=== PATIENT | female | born 1970 | race African-American/Black ===

== ENCOUNTER 2019-05-14 13:43 | Emergency (ER) | payer MEDICAID ==
[~2019-05-14] VITALS: Ht 167.6 cm; Wt 62.0 kg
[2019-05-14] MEDS ORDERED: ONDANSETRON HCL 4MG/2ML INJ IV STA (14:14)
[2019-05-14] MEDS ORDERED: MORPHINE SULFATE 4 MG/ML CPJ (NOT FOR IM USE) IV STA (14:14)
[2019-05-14] MEDS ORDERED: SODIUM CHLORIDE 0.9% 1,000 ML IV ONE (14:14)
[2019-05-14 14:53] LABS: BASOPHILS % 1.4 % (0.0-2.0); EOSINOPHILS % 3.8 % (0.0-5.0); HEMATOCRIT. 46.7 % (36.0-48.0); HEMOGLOBIN. 15.5 g/dL (12.0-16.0); LYMPHOCYTES % 26.1 % (20.0-50.0); MEAN CORPUSCULAR HEMOGLOBIN 29.9 pg (28.0-32.0); MEAN PLATELET VOLUME 7.7 fl (7.4-10.4); MONOCYTES % 9.8 % (2.0-8.0); NEUTROPHILS % 58.9 % (40.0-76.0); PLATELET 241 x1000/uL (130-400); RED BLOOD CELL COUNT 5.18 mill/uL (4.2-5.4); RED CELL DISTRIBUTION WIDTH 15.7 % (11.6-14.6)
[2019-05-14 14:58] LABS: CHLORIDE 110 mEq/L (98-107)
[2019-05-14 14:59] LABS: PARTIAL THROMBOPLASTIN TIME 31.4 sec (23.4-31.0); PROTHROMBIN TIME 10.5 sec (9.6-11.0)
[2019-05-14 15:08] LABS: HCG SCREEN NEGATIVE
[2019-05-14 17:56] LABS: CLARITY URINE CLEAR (CLEAR); COLOR URINE YELLOW (YELLOW); KETONES URINE TRACE (NEGATIVE); LEUKOCYTE ESTERASE URINE NEGATIVE (NEGATIVE); NITRITE URINE NEGATIVE (NEGATIVE); OCCULT BLOOD URINE NEGATIVE (NEGATIVE); PROTEIN URINE NEGATIVE (NEGATIVE); SPECIFIC GRAVITY URINE 1.057 (1.005-1.030); UROBILINOGEN URINE 0.2 E.U./dL (0.2-1.0)
[2019-05-14 18:15] VITALS: BP 158/90
[2019-05-14] MEDS ORDERED: IOHEXOL-300 100 ML BOTTLE ONE (18:16)
== END 2019-05-14 18:30 | disposition home or self-care (01) ==
LOC: ER 14:31
DX: M54.5 Low back pain (principal); M54.2 Cervicalgia; R10.9 Unspecified abdominal pain; J45.909 Unspecified asthma, uncomplicated; V49.88XA Car occupant (driver) (passenger) injured in other specified transport accidents, initial encounter; Y93.89 Activity, other specified; Y92.89 Other specified places as the place of occurrence of the external cause; Y99.8 Other external cause status
CPT/HCPCS: 36415; 70450; 70486; 71260; 72125; 74177; 80053; 81003; 83690; 84703; 85025; 85610; 85730; 96374; 96375; 99284; J2270; J2405; J7030; Q9967

== ENCOUNTER 2021-11-14 12:52 | Inpatient (IN) | payer MEDICAID ==
[~2021-11-14] VITALS: Ht 152.4 cm; Wt 57.7 kg
[2021-11-14] MEDS ORDERED: MORPHINE SULFATE 4 MG/ML CPJ (NOT FOR IM USE) IV STA (14:04)
[2021-11-14] MEDS ORDERED: ONDANSETRON HCL 4MG/2ML INJ IV STA (14:04)
[2021-11-14] MEDS ORDERED: SODIUM CHLORIDE 0.9% 1,000 ML IV ONE (14:15)
[2021-11-14 17:06] LABS: BASOPHILS % 0.9 % (0.0-2.0); EOSINOPHILS % 0.2 % (0.0-5.0); HEMATOCRIT. 51.3 % (36.0-48.0); HEMOGLOBIN. 16.6 g/dL (12.0-16.0); LYMPHOCYTES % 48.9 % (20.0-50.0); MEAN CORPUSCULAR HEMOGLOBIN 29.6 pg (28.0-32.0); MEAN CORPUSCULAR VOLUME 91.4 fL (81.0-99.0); MEAN PLATELET VOLUME 7.9 fl (7.4-10.4); PLATELET 202 x1000/uL (130-400); RED BLOOD CELL COUNT 5.61 mill/uL (4.2-5.4); RED CELL DISTRIBUTION WIDTH 15.2 % (11.6-14.6)
[2021-11-14 17:13] LABS: CLARITY URINE CLEAR (CLEAR); COLOR URINE YELLOW (YELLOW); KETONES URINE NEGATIVE (NEGATIVE); LEUKOCYTE ESTERASE URINE 1+ (NEGATIVE); NITRITE URINE NEGATIVE (NEGATIVE); OCCULT BLOOD URINE NEGATIVE (NEGATIVE); PROTEIN URINE 1+ (NEGATIVE); SPECIFIC GRAVITY URINE 1.016 (1.005-1.030); UROBILINOGEN URINE 0.2 E.U./dL (0.2-1.0)
[2021-11-14 17:15] LABS: CHLORIDE 106 mEq/L (98-107)
[2021-11-14] MEDS ORDERED: CEFTRIAXONE 1 G PREMIX 50 ML IV ONE (18:00)
[2021-11-14] MEDS ORDERED: ASPIRIN 325MG EC TABLET PO ONE (21:15)
[2021-11-14] MEDS ORDERED: ONDA4TAB11 PO (23:33)
[2021-11-14] MEDS ORDERED: HYDR25TA PO (23:33)
[2021-11-14] MEDS ORDERED: LEVO75TA7 PO (23:33)
[2021-11-14] MEDS ORDERED: LISI10TA26 PO (23:33)
[2021-11-14] MEDS ORDERED: PRED10TA PO (23:33)
[2021-11-14 23:35] VITALS: BP 104/55
[2021-11-14 23:40] VITALS: BP 104/55
[2021-11-15] MEDS ORDERED: CLONIDINE 0.1MG TABLET PO PRN (00:30)
[2021-11-15] MEDS ORDERED: GUAIFENESIN 200MG/10ML SUGAR FREE UDC PO PRN (00:30)
[2021-11-15] MEDS ORDERED: ACETAMINOPHEN 325MG TABLET PO PRN (00:30)
[2021-11-15] MEDS ORDERED: IPRATROPIUM/ALBUTEROL 0.5-3(2.5)MG/3ML NEB NEB PRN (00:30)
[2021-11-15] MEDS ORDERED: DOCUSATE SODIUM 100MG CAPSULE PO PRN (00:30)
[2021-11-15] MEDS ORDERED: HYDROCODONE/ACETAMINOPHEN 5/325MG TABLET PO PRN (00:30)
[2021-11-15] MEDS ORDERED: MAGNESIUM/ALUMINUM HYDROXIDE/SIMETHICONE 30ML UDC PO PRN (00:30)
[2021-11-15] MEDS ORDERED: ONDANSETRON HCL 4MG/2ML INJ IV PRN (00:30)
[2021-11-15] MEDS ORDERED: NALOXONE HCL 0.4MG/ML VIAL IV PRN (00:45)
[2021-11-15] MEDS: ENOXAPARIN 30MG/0.3ML SYR SUBCUT SCH (01:37)
[2021-11-15 04:00] VITALS: BP 93/66
[2021-11-15 08:00] VITALS: BP 139/81
[2021-11-15 08:38] LABS: HEMATOCRIT. 49.5 % (36.0-48.0); HEMOGLOBIN. 16.3 g/dL (12.0-16.0); MEAN CORPUSCULAR HEMOGLOBIN 29.6 pg (28.0-32.0); MEAN CORPUSCULAR VOLUME 89.9 fL (81.0-99.0); MEAN PLATELET VOLUME 8.2 fl (7.4-10.4); PLATELET 201 x1000/uL (130-400); RED CELL DISTRIBUTION WIDTH 15.1 % (11.6-14.6)
[2021-11-15 08:45] LABS: CHLORIDE 108 mEq/L (98-107)
[2021-11-15 08:54] LABS: LDL CHOLESTEROL 246 mg/dL (5-100)
[2021-11-15 08:55] LABS: CREATINE KINASE 98 IU/L (26-192); HDL CHOLESTEROL 26 mg/dL (40-59)
[2021-11-15 08:58] LABS: CREATINE KINASE MB FRACTION < 1.0 ng/mL (0.5-3.6)
[2021-11-15 12:00] VITALS: BP_SYST 101; BP_SYST 105; BP_SYST 108; BP_DIAS 44; BP_DIAS 76; BP_DIAS 78
[2021-11-15] MEDS ORDERED: CEFTRIAXONE 1 G PREMIX 50 ML IV SCH (12:15)
[2021-11-15] MEDS: LEVOTHYROXINE SODIUM 75MCG TABLET PO SCH (12:53)
[2021-11-15] MEDS: CEFTRIAXONE 1,000 MG in DEXTROSE 5% WATER 50 ML IV SCH (15:00)
[2021-11-15 20:00] VITALS: BP 110/67
[2021-11-15 22:26] LABS: CREATINE KINASE 75 IU/L (26-192); CREATINE KINASE MB FRACTION < 1.0 ng/mL (0.5-3.6)
[2021-11-16 00:22] VITALS: BP 101/61
[2021-11-16 04:00] VITALS: BP 108/54
[2021-11-16 06:56] LABS: HEMATOCRIT. 47.7 % (36.0-48.0); HEMOGLOBIN. 15.8 g/dL (12.0-16.0); MEAN CORPUSCULAR HEMOGLOBIN 29.6 pg (28.0-32.0); MEAN CORPUSCULAR VOLUME 89.5 fL (81.0-99.0); MEAN PLATELET VOLUME 8.1 fl (7.4-10.4); PLATELET 194 x1000/uL (130-400); RED BLOOD CELL COUNT 5.33 mill/uL (4.2-5.4); RED CELL DISTRIBUTION WIDTH 15.1 % (11.6-14.6)
[2021-11-16 07:06] LABS: CHLORIDE 109 mEq/L (98-107)
[2021-11-16 07:27] LABS: T4 FREE 1.36 ng/dL (0.76-1.46)
[2021-11-16 08:00] VITALS: BP 112/57
[2021-11-16] MEDS: LEVOTHYROXINE SODIUM 75MCG TABLET PO SCH (08:39)
[2021-11-16] MEDS: ENOXAPARIN 30MG/0.3ML SYR SUBCUT SCH (08:39)
[2021-11-16 10:29] LABS: PLATELET ESTIMATE NORMAL
[2021-11-16 11:47] VITALS: BP 96/44
[2021-11-16] MEDS: CEFTRIAXONE 1,000 MG in DEXTROSE 5% WATER 50 ML IV SCH (13:55)
[2021-11-16 15:51] VITALS: BP 99/52
[2021-11-16 20:00] VITALS: BP 133/72
[2021-11-17] VITALS: BP 129/87
[2021-11-17 04:00] VITALS: BP 120/84
[2021-11-17] MEDS: LEVOTHYROXINE SODIUM 75MCG TABLET PO SCH (06:44)
[2021-11-17 06:59] LABS: HEMATOCRIT. 47.3 % (36.0-48.0); HEMOGLOBIN. 15.7 g/dL (12.0-16.0); MEAN CORPUSCULAR HEMOGLOBIN 29.8 pg (28.0-32.0); MEAN CORPUSCULAR VOLUME 89.4 fL (81.0-99.0); MEAN PLATELET VOLUME 8.3 fl (7.4-10.4); PLATELET 199 x1000/uL (130-400); RED BLOOD CELL COUNT 5.29 mill/uL (4.2-5.4)
[2021-11-17 07:15] LABS: CHLORIDE 109 mEq/L (98-107)
[2021-11-17 07:51] LABS: ATYPICAL LYMPHOCYTES 3; PLATELET ESTIMATE NORMAL
[2021-11-17 08:00] VITALS: BP 131/80
[2021-11-17 12:00] VITALS: BP 124/74
[2021-11-17 13:31] LABS: PLATELET ESTIMATE NORMAL
[2021-11-17] MEDS: CEFTRIAXONE 1,000 MG in DEXTROSE 5% WATER 50 ML IV SCH (13:34)
[2021-11-17 16:00] VITALS: BP_SYST 124; BP_SYST 143; BP_SYST 160; BP_DIAS 101; BP_DIAS 55; BP_DIAS 86
[2021-11-17] MEDS ORDERED: ATOR40TA70 MT (18:56)
[2021-11-17 20:00] VITALS: BP_SYST 131; BP_SYST 135; BP_SYST 143; BP_DIAS 69; BP_DIAS 84; BP_DIAS 93
== END 2021-11-17 22:00 | disposition home or self-care (01) | DRG 204 ==
LOC: ER 13:00 → 7WST 17:58 → ENRESERV 20:42
PROVIDERS: ADMIT Internal Medicine; ATTEND Internal Medicine
DX: R55 Syncope and collapse (principal); U07.1 COVID-19; R07.89 Other chest pain; R53.83 Other fatigue; D72.819 Decreased white blood cell count, unspecified; E03.9 Hypothyroidism, unspecified; E78.1 Pure hyperglyceridemia; E78.5 Hyperlipidemia, unspecified; I10 Essential (primary) hypertension; J45.20 Mild intermittent asthma, uncomplicated; K43.9 Ventral hernia without obstruction or gangrene; E05.90 Thyrotoxicosis, unspecified without thyrotoxic crisis or storm; Z90.710 Acquired absence of both cervix and uterus; Z79.899 Other long term (current) drug therapy
CPT/HCPCS: 36415; 71045; 74176; 78580; 80048; 80053; 80061; 81003; 82550; 82553; 83036; 83605; 83735; 83880; 84145; 84439; 84443; 84484; 85025; 93005; 93970; 99285; C9803; J0696; J1650; J2270; J2405; J7030; J7060; U0003; U0005